=== PATIENT | male | born 1955 | race Caucasian/White ===

== ENCOUNTER 2017-03-25 01:53 | Emergency (ER) | payer MEDICAID, MEDICARE ==
[2017-03-25] MEDS ORDERED: MORPHINE SULFATE 2 MG/ML DISP.SYRIN IV ONE ×2 (02:04→03:27)
[2017-03-25] MEDS ORDERED: MORPHINE SULFATE 2 MG/ML DISP.SYRIN ONE (02:05)
--- NOTE | 2017-03-25 02:17 | ERNOTE ---
Medical Problem HPI - General Chief Complaint: General Assessment Time Seen by Provider: 03/25/17 01:53 Source: patient, family, EMS, RN notes reviewed Exam Limitations: physical impairment - unable to turn to the side secondary to pain - Immun/Allergies/Home Medications Immunizations: IMMUNIZATION HX Immunizations Up to Date Yes History of Influenza Vaccine Yes Allergies/Adverse Reactions: Allergies Penicillins Allergy (Verified 03/25/17 02:03) Home Medications: HOME MEDICATIONS Calcium Acetate [Phoslo] 2 cap PO TID 03/25/17 [Last Taken Unknown] Cinacalcet HCl [Sensipar] 30 mg PO HS 03/25/17 [Last Taken Unknown] Ergocalciferol [Calciferol, Vitamin D] 50,000 units PO Q30D 03/25/17 [Last Taken Unknown] Famotidine 20 mg PO BID 03/25/17 [Last Taken Unknown] Ferrous Sulfate 325 mg PO BID 03/25/17 [Last Taken Unknown] Gabapentin 100 mg PO HS 03/25/17 [Last Taken Unknown] Lisinopril 20 mg PO DAILY 03/25/17 [Last Taken Unknown] amLODIPine BESYLATE [Norvasc] 5 mg PO DAILY 03/25/17 [Last Taken Unknown] clonazePAM [Klonopin] 0.25 mg PO HS 03/25/17 [Last Taken Unknown] - History of Present History Narrative: Patient states has not felt well for 2-3 days, feels like his left kidney is "exploding". Tonight the pain got much worse, and he came in by ambulance. His pain has increased, and he has generally just not felt well. He is a peritoneal dialylsis patient, and was trying to discharge the 2nd bag (out of 5) tonight when he decided he had to come to the ED to be seen. He sees Dr. Inman in [facility] for his renal failure. Labs are drawn monthly, but he has no idea of what his labs usually run. He has been on dialysis for many years now. He has never been seen at this facility before. Timing: constant, getting worse Severity: severe Modifying Factors - (Improves): Present: other - nothing Modifying Factors - (Worsens): Present: movement Review of Systems - Review of Systems Constitutional: Present: weakness, fatigue, malaise EYE: Present: no symptoms reported ENT: Present: no symptoms reported Respiratory: Absent: shortness of breath, cough, orthopnea Cardiology: Absent: chest pain Gastrointestinal/Abdominal: Present: abdominal pain - left flank, eating less Genitourinary: Present: decreased urinary output Musculoskeletal: Present: back pain - left flank Skin: Present: no symptoms reported Neurological: Present: depressed Endocrine: Present: no symptoms reported Hematologic/Lymphatic: Present: no symptoms reported - Patient's Past Medical History Patient History - Medical: Anxiety, GERD, Renal Failure, Seizures, Other Patient History - Cardiac/Respiratory: Hypertension Patient History - Cancer: No Hx of Cancer Patient History - Surgical Procedures: Other - hernia repair Patient History - Other: None - Family History Father Family History - Medical: Paternal Grandfather Family History - Medical: - Social History Living Situations: home Psych History: No pertinent hx Smoking Status: Current every day smoker Alcohol Use: none Drug Use: none - Immunizations Immunizations Up to Date: Yes History of Influenza Vaccine: Yes Physical Exam - Physical Exam General Appearance: Present: wd/wn, alert, severe distress, anxious, thin Head Exam: Present: normal inspection, no evidence of injury Eye Exam: Normal inspection: bilateral, PERRL: bilateral, EOMI: bilateral Ears, Nose, Throat: Present: normal ENT inspection, normal pharynx Neck: Present: normal inspection, nontender Respiratory: Present: no respiratory distress, normal breath sounds, chest nontender, lungs clear Cardiovascular/Chest: Present: regular rate, rhythm, no murmur Gastrointestinal/Abdominal: Present: normal bowel sounds, nondistended, soft, tenderness Back Exam: Present: decreased range of motion, other - tenderness left posterior /flank Extremity Exam: Present: normal range of motion, extremity edema - bilateral lower extremities Neurological Exam: Present: alert, oriented Skin Exam: Present: pallor ED Progress - Results and Orders Patient's Lab Results:: I have reviewed the patient's lab results. Results and Orders: Laboratory Results - last 24 hr 03/25/17 03/25/17 02:29 02:29 WBC 16.6 H RBC 2.71 L Hgb 7.4 L* Hct 22.0 L* MCV 81.2 MCH 27.3 MCHC 33.6 RDW 19.4 H Plt Count 186 MPV 9.0 Immature Gran % (Auto) 0.50 H Immature Gran # (Auto) 0.09 H Neutrophils % 72.5 Lymphocytes % 15.6 L Monocytes % 7.4 Eosinophils % 3.6 H Basophils % 0.4 Nucleated RBC % 0.0 Neutrophils # 12.1 H Lymphocytes # 2.6 Monocytes # 1.2 H Eosinophils # 0.6 Absolute Basophils 0.1 Sodium 145 H Plasma Sodium 146 H Potassium 3.1 L Chloride 101 Carbon Dioxide 27.0 Anion Gap 20.1 H BUN 55 H Creatinine 14.66 H* Est GFR (Non-Af Amer) 4 L BUN/Creatinine Ratio 3.8 L Random Glucose 164 H Calcium 8.9 Calcium Adj for Albumin 9.9 Total Bilirubin 0.3 AST 20 ALT 24 Alkaline Phosphatase 81 Total Protein 5.7 L Albumin 2.3 L - Vital Signs Patient's Vital Signs:: I have reviewed the patient's vital signs. Vital Signs: Vital Signs 03/25/17 01:58 Temperature 36 C L Pulse Rate 80 Respiratory 20 Rate Blood Pressure 158/102 O2 Sat by Pulse 97 Oximetry - CT/Ultrasound CT/Ultrasound Narrative: CT abdomen/pelvis: Extensive left intrarenal parenchymal acute hemorrhage and hematoma with surrounding perirenal hemorrhage, new from prior CT. Bilateral polycystic kidney disease changes. - Progress/Reassessment Chief Complaint: General Assessment Progress:: Unchanged Progress Note-Subjective: 03/25/17 04:59 At [address] Isaac Sheffield at [facility] ED, we discussed the patient's presentation, labs and CT exam. He agreed to accept the patient for transfer to their facility for further evaluation and treatment. Patient will go by EMS to [facility] in [place]. I discussed this with the patient and his spouse, they verbalized understanding. Patient has had morphine 2 mg IV X 2, he has two IV sites in his right arm. Departure Clinical Impression: Hemorrhage of left kidney, Anemia due to acute blood loss, ESRD on peritoneal dialysis - Departure Disposition: [facility] Condition: Serious Referrals: Max Inman MD [Primary Care Provider] -
[2017-03-25 02:32] LABS: Mean Cell Volume 81.2 fl (78-100); Mean Corpuscular Hemoglobin 27.3 pg (27-31); Mean Corpuscular Hgb Conc 33.6 g/dl (32-36); Neutrophil # 12.1 K/mm3 (1.3-6.0); Neutrophil % 72.5 % (42-75.0); Platelet Count 186 K/mm3 (150-450); Red Blood Count 2.71 M/mm3 (4.7-6.0); Red Cell Distribution Width 19.4 % (11.5-14.0); White Blood Count 16.6 K/mm3 (4.0-10.5)
[2017-03-25 02:38] LABS: Hemoglobin 7.4 gm/dL (13.5-18.0)
[2017-03-25 02:43] LABS: Albumin * 2.3 gm/dl (3.4-5.0); Anion Gap 20.1 mmol/L (6.8-13.8); BUN/Creatinine Ratio 3.8 (9.0-21.6); Bilirubin, Total 0.3 mg/dL (0.0-1.1); Ca. Corrected For Albumin 9.9 mg/dL (8.4-10.2); Calcium * 8.9 mg/dL (7.9-10.9); Potassium 3.1 mmol/L (3.4-4.6); Total Protein 5.7 gm/dL (6.2-8.2)
[2017-03-25] MEDS ORDERED: MORPHINE SULFATE 4 MG/ML SYRG IV ONE (03:41)
[2017-03-25] MEDS ORDERED: MORPHINE SULFATE 4 MG/ML SYRG ONE (03:42)
[2017-03-25 05:12] VITALS: BP 117/74
== END 2017-03-25 05:11 | disposition short-term general hospital (02) ==
LOC: ER 01:53
DX: N28.89 Other specified disorders of kidney and ureter (principal); D62 Acute posthemorrhagic anemia; I12.0 Hypertensive chronic kidney disease with stage 5 chronic kidney disease or end stage renal disease; N18.6 End stage renal disease; N17.9 Acute kidney failure, unspecified; Z99.2 Dependence on renal dialysis; K21.9 Gastro-esophageal reflux disease without esophagitis; F41.9 Anxiety disorder, unspecified; F17.200 Nicotine dependence, unspecified, uncomplicated